=== PATIENT | male | born 1945 | race Caucasian/White ===

== ENCOUNTER 2022-02-17 04:44 | Day surgery (SDC) | payer OTHER, BC ==
[2022-02-15 15:24] VITALS: BMI 27.7
[2022-02-17 08:59] VITALS: TEMP 99.1
[2022-02-17 09:34] VITALS: BP 120/71; PULSE 66; RESP 25
== END 2022-02-17 09:44 | disposition home or self-care (01) ==
LOC: JASU-ENDO 04:44
PROVIDERS: ATTEND Internal Medicine Gastroenterology
PROC: 0DBL8ZX Excision of Transverse Colon, Via Natural or Artificial Opening Endoscopic, Diagnostic (ICD-10-PCS; 2022-02-17)
PROC: 0DBK8ZX Excision of Ascending Colon, Via Natural or Artificial Opening Endoscopic, Diagnostic (ICD-10-PCS; principal; 2022-02-17 08:00)
DX: Z12.11 Encounter for screening for malignant neoplasm of colon (principal); D12.2 Benign neoplasm of ascending colon; D12.3 Benign neoplasm of transverse colon; K57.30 Diverticulosis of large intestine without perforation or abscess without bleeding; K64.8 Other hemorrhoids; K59.89 Other specified functional intestinal disorders; Z86.010 Personal history of colon polyps; I10 Essential (primary) hypertension
CPT/HCPCS: 88305-TC